=== PATIENT | female | born 1950 | race Caucasian/White ===

== ENCOUNTER 2021-05-07 11:38 | Inpatient (IN) | payer MEDICARE, OTHER ==
[~2021-05-07] VITALS: Ht 165 cm; Wt 89.0 kg
[2021-05-07 12:42] LABS: BASOPHIL 1.6 % (0-2); EOSINOPHIL 6.6 % (0-7); HCT 36.3 % (37.0-47.0); LYMPHOCYTE 17.6 % (15-48); MCH 31.2 pg (25.0-31.0); MCHC 33.1 g/dL (32.0-36.0); MCV 94.3 fL (78.0-100.0); MONOCYTE 11.8 % (0-12); MPV 10.9 fL (6.0-9.5); NEUTROPHIL 62.1 % (41-80); NRBC 0; PLT 81 K/uL (150-400); RBC 3.85 M/uL (4.20-5.40); RDW 15.2 % (11.5-14.0); WBC 3.8 K/uL (4.0-10.5)
[2021-05-07 12:45] LABS: INR 1.56 (0.9-1.2); PROTHROMBIN TIME 17.7 SECONDS (11.4-13.6); PTT 35.2 SECONDS (22.2-34.7)
[2021-05-07 12:53] LABS: ALBUMIN 2.8 g/dL (3.4-5.0); BILIRUBIN - TOTAL 1.8 mg/dL (0.2-1.0); BUN/CREAT RATIO (CALC) 17.4 RATIO; CREATININE 1.49 mg/dL (0.51-0.95); GLOBULIN (CALCULATION) 4.6 g/dL; POTASSIUM 4.2 mmol/L (3.5-5.1); TOTAL PROTEIN 7.4 g/dL (6.4-8.2)
[2021-05-07 15:16] LABS: BILIRUBIN 1+ mg/dL (NEGATIVE); BLOOD NEGATIVE Ery/uL (NEGATIVE); CLARITY CLOUDY (CLEAR); COLOR YELLOW (YELLOW); GLUCOSE (U) NORMAL (NORMAL); LEUKOCYTES NEGATIVE Leu/uL (NEGATIVE); NITRITE POSITIVE (NEGATIVE); PROTEIN NEGATIVE (NEGATIVE); SPECIFIC GRAVITY 1.025 (1.001-1.030); pH 6.5 (5.0-9.0)
[2021-05-07 15:40] LABS: BACTERIA 4+; SQUAMOUS EPITHELIAL CELLS RARE; URINARY WBC RARE
[2021-05-07] MEDS ORDERED: LASIX20 MG PO (18:25)
[2021-05-07] MEDS ORDERED: INDERAL20 MG PO (18:26)
[2021-05-07] MEDS ORDERED: REMERON15 MG PO (18:27)
[2021-05-07] MEDS ORDERED: PROAMATINE5 MG PO (18:29)
[2021-05-07] MEDS ORDERED: NEURONTIN100 MG PO (18:29)
[2021-05-07] MEDS ORDERED: ZOLOFT50 MG PO (18:30)
[2021-05-07] MEDS ORDERED: SPIRONOLACTONE25 M1 PO (18:34)
[2021-05-07] MEDS ORDERED: ZINC50 M1 PO (18:35)
[2021-05-07] MEDS ORDERED: ALL DAY ALLERGY10 M2 PO (18:36)
[2021-05-07] MEDS ORDERED: POTASSIUM CHLO10 MEQ PO (18:38)
[2021-05-08 05:57] LABS: BASOPHIL 0.8 % (0-2); EOSINOPHIL 5.8 % (0-7); HCT 32.2 % (37.0-47.0); HGB 10.6 g/dl (12.5-16.0); LYMPHOCYTE 18.5 % (15-48); MCH 31.4 pg (25.0-31.0); MCHC 32.9 g/dL (32.0-36.0); MCV 95.3 fL (78.0-100.0); MONOCYTE 13.5 % (0-12); MPV 10.2 fL (6.0-9.5); NRBC 0; RBC 3.38 M/uL (4.20-5.40); RDW 15.1 % (11.5-14.0); WBC 2.6 K/uL (4.0-10.5)
[2021-05-08 06:06] LABS: PLT 65 K/uL (150-400)
[2021-05-08 06:17] LABS: INR 1.53 (0.9-1.2); PROTHROMBIN TIME 17.5 SECONDS (11.4-13.6)
[2021-05-08 07:13] LABS: CREATININE 1.37 mg/dL (0.51-0.95); POTASSIUM 4.3 mmol/L (3.5-5.1)
[2021-05-08 12:23] LABS: HCT 34.8 % (37.0-47.0); HGB 11.4 g/dL (12.5-16.0)
--- NOTE | 2021-05-08 16:15 | NUR ---
05/08/21 Ms. Cutler lives at home with her spouse. She was independent in the home and coomunity prior to admission. - No discharge planning needs are anticipated.
[2021-05-09 06:15] LABS: BASOPHIL 1.5 % (0-2); EOSINOPHIL 9.3 % (0-7); HCT 33.4 % (37.0-47.0); LYMPHOCYTE 20.7 % (15-48); MCHC 32.9 g/dL (32.0-36.0); MCV 94.1 fL (78.0-100.0); MONOCYTE 14.1 % (0-12); MPV 10.7 fL (6.0-9.5); NEUTROPHIL 53.8 % (41-80); NRBC 0; PLT 82 K/uL (150-400); RBC 3.55 M/uL (4.20-5.40); RDW 14.6 % (11.5-14.0); WBC 3.3 K/uL (4.0-10.5)
[2021-05-09 06:27] LABS: INR 1.48 (0.9-1.2)
[2021-05-09 06:43] LABS: BUN/CREAT RATIO (CALC) 15.8 RATIO; CREATININE 1.39 mg/dL (0.51-0.95); POTASSIUM 3.8 mmol/L (3.5-5.1)
[2021-05-09] MEDS ORDERED: ANUCORT-HC25 MG PR (17:29)
[2021-05-09] MEDS ORDERED: COLACE100 MG PO (17:29)
== END 2021-05-09 17:59 | disposition home or self-care (01) | DRG 394 ==
LOC: FER 11:38 → FMS 16:30
PROVIDERS: Emergency Medicine; Student in an Organized Health Care Education/Training Program; ADMIT Internal Medicine
PROC: 0DJ08ZZ Inspection of Upper Intestinal Tract, Via Natural or Artificial Opening Endoscopic (ICD-10-PCS; principal; 2021-05-09 11:30)
PROC: 0DJD8ZZ Inspection of Lower Intestinal Tract, Via Natural or Artificial Opening Endoscopic (ICD-10-PCS; 2021-05-09 11:30)
DX: K64.8 Other hemorrhoids (principal); K76.6 Portal hypertension; I85.10 Secondary esophageal varices without bleeding; D68.9 Coagulation defect, unspecified; R18.8 Other ascites; K64.4 Residual hemorrhoidal skin tags; Z20.822 Contact with and (suspected) exposure to COVID-19; K57.30 Diverticulosis of large intestine without perforation or abscess without bleeding; I86.4 Gastric varices; K74.60 Unspecified cirrhosis of liver; D69.6 Thrombocytopenia, unspecified; K59.00 Constipation, unspecified; G62.9 Polyneuropathy, unspecified; K76.0 Fatty (change of) liver, not elsewhere classified; F41.9 Anxiety disorder, unspecified; I12.9 Hypertensive chronic kidney disease with stage 1 through stage 4 chronic kidney disease, or unspecified chronic kidney disease; N18.30 Chronic kidney disease, stage 3 unspecified; F32.9 Major depressive disorder, single episode, unspecified; M10.9 Gout, unspecified; Z96.651 Presence of right artificial knee joint; Z88.8 Allergy status to other drugs, medicaments and biological substances; Z90.710 Acquired absence of both cervix and uterus; Z98.890 Other specified postprocedural states; Z90.5 Acquired absence of kidney
CPT/HCPCS: 36415; 80048; 80053; 81001; 84145; 85014; 85018; 85025; 85610; 85730; G0378; J2250; J3430; J7120; U0002

== ENCOUNTER 2021-06-13 22:21 | Emergency (ER) | payer MEDICARE, OTHER ==
[~2021-06-13 22:21] MED LIST: ALL DAY ALLERGY10 M2 PO; ANUCORT-HC25 MG PR; COLACE100 MG PO; INDERAL20 MG PO; LASIX20 MG PO; NEURONTIN100 MG PO; POTASSIUM CHLO10 MEQ PO; PROAMATINE5 MG PO; REMERON15 MG PO; SPIRONOLACTONE25 M1 PO; ZINC50 M1 PO; ZOLOFT50 MG PO
[2021-06-14 01:59] LABS: EOSINOPHIL 5.8 % (0-7); HCT 36.3 % (37.0-47.0); HGB 11.9 g/dl (12.5-16.0); LYMPHOCYTE 12.4 % (15-48); MCH 31.2 pg (25.0-31.0); MCHC 32.8 g/dL (32.0-36.0); MPV 10.8 fL (6.0-9.5); NEUTROPHIL 67.6 % (41-80); NRBC 0; RBC 3.82 M/uL (4.20-5.40); WBC 4.9 K/uL (4.0-10.5)
[2021-06-14 02:03] LABS: PLT 88 K/uL (150-400)
[2021-06-14 02:18] LABS: ALBUMIN 2.8 g/dL (3.4-5.0); BILIRUBIN - TOTAL 1.7 mg/dL (0.2-1.0); BUN/CREAT RATIO (CALC) 15.1 RATIO; CREATININE 1.46 mg/dL (0.51-0.95); GLOBULIN (CALCULATION) 4.9 g/dL; POTASSIUM 4.4 mmol/L (3.5-5.1); TOTAL PROTEIN 7.7 g/dL (6.4-8.2)
== END 2021-06-14 02:58 | disposition home or self-care (01) ==
LOC: FER 22:21
PROVIDERS: Emergency Medicine
DX: S22.079A Unspecified fracture of T9-T10 vertebra, initial encounter for closed fracture (principal); S46.001A Unspecified injury of muscle(s) and tendon(s) of the rotator cuff of right shoulder, initial encounter; N18.30 Chronic kidney disease, stage 3 unspecified; D64.9 Anemia, unspecified; I50.9 Heart failure, unspecified; R07.81 Pleurodynia
CPT/HCPCS: 36415; 71111; 72072; 80053; 85025

== ENCOUNTER → 2021-12-07 | Emergency (ER) | payer MEDICARE ==
[~2021-12-07] MED LIST changes: +MEDROL 4MG DOSEP4 MG PO; +VENTOLIN HFA IN18 GM INH
== END | disposition home or self-care (01) ==
LOC: FER 18:54
DX: U07.1 COVID-19 (principal); J12.82 Pneumonia due to coronavirus disease 2019
CPT/HCPCS: 71045; J1100